=== PATIENT | female | born 1955 | race Caucasian/White ===

== ENCOUNTER 2017-12-27 05:54 | Day surgery (SDC) | payer OTHER ==
[2017-12-23 16:52] VITALS: BMI 34.4
[2017-12-27] MEDS ORDERED: EPINEPHrine 1:1,000 1 MG/1 ML - 30ML VIAL (INJECTION) ONE (07:06)
[2017-12-27] MEDS ORDERED: BUPIVACAINE HCL/PF 2.5 MG/ML - 30 ML VIAL IJ ONE (07:06)
[2017-12-27] MEDS ORDERED: ePHEDrine SULFATE 50 MG/1 ML AMPULE ONE (07:25)
[2017-12-27] MEDS ORDERED: SUCCINYLCHOLINE CHLORIDE 200 MG/10 ML VIAL ONE (07:26)
[2017-12-27] MEDS ORDERED: MIDAZOLAM HCL 2 MG/2 ML SINGLE DOSE VIAL ONE (07:26)
[2017-12-27] MEDS ORDERED: PROPOFOL 20 ML ONE ×6 (07:26)
[2017-12-27] MEDS ORDERED: BUPIVACAINE HCL/PF 0.25% (2.5MG/ML) 10 ML VIAL IJ ONE (08:24)
[2017-12-27] MEDS ORDERED: ONDANSETRON 4 MG/2 ML VIAL ONE (09:46)
[2017-12-27] MEDS ORDERED: ONDANSETRON 4 MG/2 ML VIAL IVPUSH ONE (09:50)
[2017-12-27] MEDS ORDERED: ONDANSETRON 4 MG/2 ML VIAL IVPUSH PRN (12:01)
[2017-12-27] MEDS ORDERED: oxyCODONE HCL 5 MG TABLET PO PRN ×2 (12:01)
[2017-12-27] MEDS ORDERED: LACTATED RINGERS SOLUTION 1,000 ML IV SCH (12:15)
[2017-12-27 12:49] VITALS: BP 115/64; PULSE 58; TEMP 98
--- NOTE | 2017-12-29 23:17 | OP ---
DATE OF OPERATION: 12/27/2017 SURGEON: Osorio Eduardo M.D. HUMAN RESOURCE INTERN: Michael Reese PREOPERATIVE DIAGNOSIS: 1. Left knee medial lateral meniscal tear. 2. Left knee cartilage injury. 3. Left knee synovitis. POSTOPERATIVE DIAGNOSIS: 1. Left knee medial lateral meniscal tear. 2. Left knee cartilage injury. 3. Left knee synovitis. PROCEDURE: 1. Left knee arthroscopy, partial meniscectomy medial and lateral meniscus. 2. Left knee arthroscopy with chondroplasty and abrasion plasty. 3. Left knee arthroscopy with synovectomy including removal of medial plica. CPT codes 66464, 48808, 43137. FINDINGS: 1. Medial meniscus body and posterior horn tear. 2. Lateral meniscus posterior horn tear. 3. Synovitis patellofemoral medial lateral notch area. 5. Antegrade grade 2 to 3 cartilage injury medial femoral condyle. 6. ACL and PCL intact. 7. Diffuse grade 1-2 cartilage lateral tibial plateau. 7. Central grade 2-4 cartilage injury patellofemoral trochlea. PROCEDURE: Informed consent was obtained. The patient came to the operating room, where the lower extremity was prepped and draped in a sterile fashion. A tourniquet was placed on the upper thigh, but not inflated. Using standard arthroscopic technique, a lateral incision and portal was made to allow for introduction of the camera into the suprapatellar bursa. This was then taken to the medial joint line, where under direct visualization, a medial incision and portal was made. Excessive synovium noted in the medial, lateral and patellofemoral and notch area was removed by an upbiter, shaver and Bovie cautery. This was found to bring in inflammatory tissue into the joint surface, a source of pain and dysfunction. Probing of the medial and lateral meniscus found tears, as described in the findings. These were removed with the upbiter and shaver and taken back to a stable rim. Grade 2 to 3 degenerative changes were treated with a chondroplasty, removing all flaking surfaces with low-setting Bovie along the periphery to prevent further flaking. Grade 4 changes, as noted, were treated with an abrasoplasty, creating a bleeding surface at the bone/cartilage interface. Aggressive debridement with shaver/rubio created bleeding surface. Mirco fracture also done when indicated in findings All areas of the knee were once again reexamined. The knee was then drained and a single suture was placed in all portals. A sterile dressing was placed and the patient was transferred to the recovery room without complication. OSORIO EDUARDO M.D. [id number]
--- NOTE | 2018-01-01 16:08 | PATH ---
Surgical Pathology Report Patient Name: JULITO WU [facility]. Rec. #: [id number] /Age/Gender: 1955 (Age: 62) / F Account: [id number] Location: [facility] Taken: 12/27/2017 Received: 12/27/2017 Reported: 01/01/2018 Physicians: Osorio Rangel M.D. Specimen(s) Received LEFT KNEE SHAVINGS Clinical History Left knee internal derangement Final Diagnosis KNEE, LEFT, ARTHROSCOPIC SHAVINGS: FIBROSYNOVIAL TISSUE AND CARTILAGE. Electronically Signed Jacklyn Almeida M.D. Gross Description Received in formalin, labeled "left knee shavings," is a 3.8 x 3.5 x 0.4 cm. aggregate of lozada-yellow soft tissue fragments. A construction representative portion is submitted in one cassette. /12/30/2017 saudi12/30/2017
== END 2017-12-27 11:30 | disposition home or self-care (01) ==
LOC: FASU 05:54
PROVIDERS: ATTEND Orthopaedic Surgery
PROC: 0SBD4ZZ Excision of Left Knee Joint, Percutaneous Endoscopic Approach (ICD-10-PCS; principal; 2017-12-27 07:41)
DX: S83.242A Other tear of medial meniscus, current injury, left knee, initial encounter (principal); S83.282A Other tear of lateral meniscus, current injury, left knee, initial encounter; S83.8X2A Sprain of other specified parts of left knee, initial encounter; M65.862 Other synovitis and tenosynovitis, left lower leg; X58.XXXA Exposure to other specified factors, initial encounter; Y93.9 Activity, unspecified; Y92.9 Unspecified place or not applicable
CPT/HCPCS: 88304-TC; 94760

== ENCOUNTER 2018-02-11 11:54 | Observation (INO) | payer OTHER ==
--- NOTE | 2018-02-11 12:15 | PDOC ---
History of Present Illness <Junaid Kidd - Last Filed: 02/11/18 15:24> - History of Present Illness Initial Comments: 02/11/18 12:15 CHIEF COMPLAINT: dizziness HISTORY OF PRESENT ILLNESS: 63 yo F with hx of HTN and afib presents to ED with dizziness since this morning. Patient reports that she woke up "feeling a little off but ok," and throughout the morning felt increasing dizzy to the point where the entire room was spinning and she became nauseous. She laid down on the ground but denies fall or LOC and states she remembers everything that happened. Her son and daughter found her on the floor and when they could not get her to stand back up due to her dizziness they called EMS. Family denies any change in behavior or slurred speech. Patient denies any blurry vision but states "I just feel a little weak." On EMS arrival patient vitals were stable. No recent travel or sick contacts. PAST MEDICAL HISTORY: HTN, afib FAMILY HISTORY: Denies SOCIAL HISTORY: Denies tobacco, alcohol, illicit drug use. SURGICAL HISTORY: Denies ALLERGIES: No known drug allergies REVIEW OF SYSTEMS General/Constitutional: Denies fever or chills. Denies weakness, weight change. HEENT: Denies change in vision. Denies ear pain or discharge. Denies sore throat. Cardiovascular: Denies chest pain or shortness of breath. Respiratory: Denies cough, wheezing, or hemoptysis. Gastrointestinal: Denies nausea, vomiting, diarrhea or constipation. Denies rectal bleeding. Genitourinary: Denies dysuria, frequency, or change in urination. Musculoskeletal: Denies joint or muscle swelling or pain. Denies neck or back pain. Skin and breasts: Denies rash or easy bruising. Neurologic: Vertigo. Denies headache, loss of consciousness, or loss of sensation. PHYSICAL EXAM General Appearance: Well-appearing, appropriately dressed. No apparent distress. HEENT: EOMI, PERRLA, normal ENT inspection, normal voice, TMs normal, pharynx normal. No conjunctival pallor. No photophobia, scleral icterus. Neck: Supple. Trachea midline. No tenderness, rigidity, carotid bruit, stridor , lymphadenopathy, or thyromegaly. Respiratory/Chest: Lungs CTAB. No shortness of breath, chest tenderness, respiratory distress, accessory muscle use. No crackles, rales, rhonchi, stridor , wheezing, dullness Cardiovascular: RRR. S1, S2. Gastrointestinal/Abdominal: Normal bowel sounds. Abdomen soft, non-distended. No tenderness or rebound tenderness. No organomegaly, pulsatile mass, guarding , hernia, hepatomegaly, splenomegaly. Musculoskeletal/Extremities: Normal inspection. FROM of all extremities, normal capillary refill. Pelvis Stable. No CVA tenderness. No tenderness to extremities, pedal edema, swelling, erythema or deformity. Integumentary: Appropriate color, dry, warm. No cyanosis, erythema, jaundice or rash Neurologic: operator specialist communications II-XII intact. Fully oriented, alert. Appropriate mood/affect. Motor strength 5/5. No appreciable EOM palsy, facial droop or sensory deficit. 02/11/18 12:52 <Miryam Alva - Last Filed: 02/11/18 15:44> - General Chief Complaint: Lightheaded Stated Complaint: DIZZINESS Time Seen by Provider: 02/11/18 11:59 Past History <Junaid Kidd - Last Filed: 02/11/18 15:24> - Past Medical History Anemia: No Asthma: No Cancer: No Cardiac Disorders: Yes (atrial fibrilation -stopped Eliquis last dose 12/22/17 as per biomedical scientist) CVA: No COPD: No CHF: No Dementia: No Diabetes: No GI Disorders: No Disorders: No HTN: Yes Hypercholesterolemia: No Liver Disease: No Seizures: No Thyroid Disease: No - Surgical History Abdominal Surgery: Yes Appendectomy: Yes Cardiac Surgery: No Cholecystectomy: Yes Lung Surgery: No Neurologic Surgery: No Orthopedic Surgery: No - Immunization History Td Vaccination: Yes Immunization Up to Date: Yes - Suicide/Smoking/Psychosocial Hx Smoking Status: No Smoking History: Never smoked Number of Cigarettes Smoked Daily: 0 Hx Alcohol Use: No Drug/Substance Use Hx: No Substance Use Type: None <Miryam Alva - Last Filed: 02/11/18 15:44> - Past Medical History Allergies/Adverse Reactions: Allergies Allergy/AdvReac Type Severity Reaction Status Date / Time No Known Allergies Allergy Verified 02/11/18 12:06 Home Medications: Ambulatory Orders Apixaban [Eliquis] 5 mg PO BID 12/23/17 Diltiazem Cd [Cardizem Cd -] 240 mg PO HS 12/23/17 Lisinopril/Hydrochlorothiazide [Lisinopril-Hctz 10-12.5 mg Tab] 1 each PO DAILY 12/23/17 Metoprolol Succinate [Toprol XL -] 50 mg PO DAILY 12/23/17 Sertraline HCl [Zoloft] 100 mg PO DAILY 12/23/17 Alprazolam [Alprazolam ER] 1 mg PO TID 02/11/18 *Physical Exam - Vital Signs Last Vital Signs Temp Pulse Resp BP Pulse Ox 97.8 F 59 L 16 119/54 97 02/11/18 12:10 02/11/18 13:51 02/11/18 13:51 02/11/18 13:51 02/11/18 13:51 <Junaid Kidd - Last Filed: 02/11/18 15:24> ED Treatment Course - LABORATORY CBC & Chemistry Diagram: 02/11/18 12:30 02/11/18 12:30 - ADDITIONAL ORDERS Additional order review: Laboratory Results 02/11/18 02/11/18 02/11/18 13:27 12:30 12:30 PT with INR INR Sodium 142 Potassium 4.1 Chloride 104 Carbon Dioxide 28 Anion Gap 10 BUN 26 H Creatinine 1.0 Creat Clearance w eGFR 56.00 Random Glucose 107 H Calcium 8.7 Total Bilirubin 0.3 AST 38 H ALT 48 Alkaline Phosphatase 80 Creatine Kinase 60 Troponin I < 0.02 Total Protein 7.8 Albumin 3.8 Triglycerides 149 Cholesterol 171 Total LDL Cholesterol 119 H HDL Cholesterol 32 L Urine Color Ltyellow Urine Appearance Slcloudy Urine pH 5.0 Ur Specific [place] 1.011 Urine Protein Negative Urine Glucose (UA) Negative Urine Ketones Negative Urine Blood Negative Urine Nitrite Negative Urine Bilirubin Negative Urine Urobilinogen Negative Ur Leukocyte Esterase Trace Urine WBC (Auto) 3 Urine RBC (Auto) <1 Ur Epithelial Cells Rare Hyaline Casts 1 02/11/18 12:30 PT with INR 15.30 H INR 1.35 H Sodium Potassium Chloride Carbon Dioxide Anion Gap BUN Creatinine Creat Clearance w eGFR Random Glucose Calcium Total Bilirubin AST ALT Alkaline Phosphatase Creatine Kinase Troponin I Total Protein Albumin Triglycerides Cholesterol Total LDL Cholesterol HDL Cholesterol Urine Color Urine Appearance Urine pH Ur Specific [place] Urine Protein Urine Glucose (UA) Urine Ketones Urine Blood Urine Nitrite Urine Bilirubin Urine Urobilinogen Ur Leukocyte Esterase Urine WBC (Auto) Urine RBC (Auto) Ur Epithelial Cells Hyaline Casts 02/11/18 12:30 RBC 4.07 MCV 80.3 MCHC 33.7 RDW 14.8 MPV 6.2 L Neutrophils % 63.8 Lymphocytes % 26.3 Monocytes % 7.6 Eosinophils % 1.4 Basophils % 0.9 - Medications Given in the ED: ED Medications Discontinued Medications Generic Name Dose Route Start Last Admin Trade Name Freq PRN Reason Stop Dose Admin Meclizine HCl 25 mg 02/11/18 12:24 02/11/18 13:46 Antivert - PO 02/11/18 12:25 25 mg ONCE ONE Administration Ondansetron HCl 4 mg 02/11/18 12:24 02/11/18 13:46 Zofran Odt - SL 02/11/18 12:25 4 mg ONCE ONE Administration <Junaid Kidd - Last Filed: 02/11/18 15:24> - LABORATORY CBC & Chemistry Diagram: 02/11/18 12:30 02/11/18 12:30 <Miryam Alva - Last Filed: 02/11/18 15:44> Medical Decision Making - Medical Decision Making 02/11/18 12:55 63 yo F with hx of HTN and afib presents to ED with dizziness since this morning. -labs, head CT labs unremarkable head CT negative for stroke. given gait disturbance and history of afib/HTN, will admit to stroke obs. <Miryam Alva - Last Filed: 02/11/18 15:44> *DC/Admit/Observation/Transfer <Junaid Kidd - Last Filed: 02/11/18 15:24> - Discharge Dispostion Admit: Yes <Miryam Alva - Last Filed: 02/11/18 15:44> Diagnosis at time of Disposition: Gait disturbance - Referrals Referrals: Zachary Hawkins MD [Primary Care Provider] - NIH Stroke Scale - Last Known Well Date/Time & Onset Date Last Known Well: 02/11/18 Time Last Known Well: 11:00 - Initial Evaluation Level of consciousness: Alert Ask patient the month and their age: Answers both correctly Ask patient to open & close eyes; make fist and let go: Obeys both correctly Best gaze (horizontal eye movement): Normal Visual field testing: No visual field loss Facial paresis (Show teeth/raise eyebrows/close eyes tight): Normal symmetrical movement Motor Function: Left Arm: Normal Motor Function: Right Arm: Normal (extends arm 90 (or 45) degrees for 10 seconds without drift Motor Function: Left Leg: Normal (extends leg 30 degrees for 5 seconds without drift) Motor Function: Right Leg: Normal (extends leg 30 degrees for 5 seconds without drift) Limb Ataxia: No ataxia Sensory(Use pinprick test arms,legs,trunk,face/side to side): Normal Best language (Describe picture, name items, read sentences): No Aphasia Dysarthria (read several words): Normal articulation Extinction and Inattention: No abnormality - Total Score NIH Stroke Scale Score: 0 <Junaid Kidd - Last Filed: 02/11/18 15:24> tPA Exclusion Checklist 0-3hr - Relative Exclusion Criteria 0-3h Rapid improvement: Yes Stroke severity too mild: Yes <Junaid Kidd - Last Filed: 02/11/18 15:24>
[2018-02-11 12:17] VITALS: BMI 34.4
[2018-02-11] MEDS ORDERED: ONDANSETRON *ODT* 4 MG TABLET SL ONE (12:24)
[2018-02-11] MEDS ORDERED: MECLIZINE HCL 25 MG TABLET (FP) PO ONE (12:24)
[2018-02-11 12:42] LABS: BASO % 0.9 % (0-2.0); EOS % 1.4 % (0-4.5); HEMATOCRIT 32.7 % (32.4-45.2); LYMPH % 26.3 % (8-40); MCH 27.1 pg (25.7-33.7); MCHC 33.7 g/dl (32.0-36.0); MEAN CELL VOLUME 80.3 fl (80-96); MEAN PLT VOLUME 6.2 fl (7.5-11.1); MONO % 7.6 % (3.8-10.2); NEUT % 63.8 % (42.8-82.8); PLATELET COUNT 180 K/MM3 (134-434); RBC 4.07 M/mm3 (3.60-5.2); RDW 14.8 % (11.6-15.6); WHITE BLOOD COUNT 5.5 K/mm3 (4.0-10.0)
[2018-02-11 12:44] LABS: URINE APPEARANCE SLCLOUDY; URINE BILIRUBIN NEGATIVE (<2.0 mg/dL); URINE BLOOD NEGATIVE (NEGATIVE); URINE COLOR LTYELLOW; URINE GLUCOSE (UA) NEGATIVE (NEGATIVE); URINE KETONE NEGATIVE (NEGATIVE); URINE LEUK ESTERASE TRACE (NEGATIVE); URINE NITRITE NEGATIVE (NEGATIVE); URINE PROTEIN NEGATIVE (NEGATIVE); URINE UROBILINOGEN NEGATIVE mg/dL (0.2-1.0)
[2018-02-11 12:54] LABS: EPI CELLS RARE /HPF (FEW); URINE HYALINE CAST 1 /lpf
[2018-02-11] MEDS ORDERED: SODIUM CHLORIDE 1,000 ML IV SCH (13:00)
[2018-02-11 13:03] LABS: INR 1.35 (0.82-1.09); PROTHROMBIN TIME (PATIENT) 15.3 SEC (9.7-13.0)
[2018-02-11 13:10] LABS: ALBUMIN 3.8 g/dl (3.4-5.0); ANION GAP 10 (8-16); BILIRUBIN,TOTAL 0.3 mg/dL (0.2-1.0); BLOOD UREA NITROGEN 26 mg/dL (7-18); CALCIUM 8.7 mg/dL (8.5-10.1); CHLORIDE 104 mmol/L (98-107); CO2 28 mmol/L (21-32); GLUCOSE,RANDOM 107 mg/dL (74-106); POTASSIUM 4.1 mmol/L (3.5-5.1); SGOT/AST 38 U/L (15-37); SGPT/ALT 48 U/L (12-78); SODIUM 142 mmol/L (136-145); TOT PROT 7.8 g/dl (6.4-8.2)
[2018-02-11 13:12] LABS: ALK PHOS 80 U/L (45-117)
[2018-02-11] MEDS ORDERED: MECLIZINE HCL 25 MG TABLET (FP) ONE (13:31)
[2018-02-11] MEDS ORDERED: ONDANSETRON *ODT* 4 MG TABLET ONE (13:32)
--- NOTE | 2018-02-11 13:32 | PDOC ---
*Physical Exam - Vital Signs Last Vital Signs Temp Pulse Resp BP Pulse Ox 97.8 F 59 L 18 133/58 100 02/11/18 12:10 02/11/18 12:10 02/11/18 12:10 02/11/18 12:10 02/11/18 13:27 - Physical Exam Comments: 02/11/18 13:28 VSS neuro exam notable for some shuffling gait, ambulates with cane since her knee surgery, otherwise unremarkable ED Treatment Course - LABORATORY CBC & Chemistry Diagram: 02/12/18 06:38 02/12/18 06:38 - ADDITIONAL ORDERS Additional order review: Laboratory Results 02/11/18 02/11/18 02/11/18 12:30 12:30 12:30 PT with INR 15.30 H INR 1.35 H Sodium 142 Potassium 4.1 Chloride 104 Carbon Dioxide 28 Anion Gap 10 BUN 26 H Creatinine 1.0 Creat Clearance w eGFR 56.00 Random Glucose 107 H Calcium 8.7 Total Bilirubin 0.3 AST 38 H ALT 48 Alkaline Phosphatase 80 Creatine Kinase 60 Total Protein 7.8 Albumin 3.8 Urine Color Ltyellow Urine Appearance Slcloudy Urine pH 5.0 Ur Specific [place] 1.011 Urine Protein Negative Urine Glucose (UA) Negative Urine Ketones Negative Urine Blood Negative Urine Nitrite Negative Urine Bilirubin Negative Urine Urobilinogen Negative Ur Leukocyte Esterase Trace Urine WBC (Auto) 3 Urine RBC (Auto) <1 Ur Epithelial Cells Rare Hyaline Casts 1 02/11/18 12:30 RBC 4.07 MCV 80.3 MCHC 33.7 RDW 14.8 MPV 6.2 L Neutrophils % 63.8 Lymphocytes % 26.3 Monocytes % 7.6 Eosinophils % 1.4 Basophils % 0.9 Medical Decision Making - Critical Care Time Total Critical Care Time (minutes): 30 Critical Care Statement: The care of this patient involved high complexity decision making to prevent further life threatening deterioration of the patient 's condition and/or to evaluate & treat vital organ system(s) failure or risk of failure. - Medical Decision Making 02/11/18 13:29 Patient seen and evaluated with the nurse practitioner. I agree with the overall evaluation, assessment, and management with the following summary of visit: 63-year-old female with history of hypertension, atrial fibrillation presents with acute onset of dizziness and difficulty ambulating around 11 AM this morning after eating breakfast, felt nauseous and diaphoretic during the episode , was found by her son and EMS activated. Since then, symptoms have almost completely resolved, though she feels slightly lightheaded. no headache, no speech change, no focal weakness. She did have some diplopia during the episode , that has also resolved. Vital signs normal Exam as noted 63-year-old female with acute onset of dizziness/gait disturbance/diplopia, resolved. Given history of hypertension and atrial fibrillation, presentation is most concerning for embolic event, now much improved. Stroke protocol initiated CT head, neurology consult Likely stroke admission *DC/Admit/Observation/Transfer Diagnosis at time of Disposition: Gait disturbance - Discharge Dispostion Disposition: HOME Condition at time of disposition: Stable - Prescriptions - Referrals - Patient Instructions - Post Discharge Activity
--- NOTE | 2018-02-11 13:38 | EKG ---
Test Reason : Blood Pressure : / mmHG Vent. Rate : 055 BPM Atrial Rate : 055 BPM P-R Int : 144 ms QRS Dur : 078 ms QT Int : 428 ms P-R-T Axes : 004 024 019 degrees QTc Int : 409 ms POOR DATA QUALITY, INTERPRETATION MAY BE ADVERSELY AFFECTED SINUS BRADYCARDIA OTHERWISE NORMAL ECG WHEN COMPARED WITH ECG OF 09-MAY-2004 11:40, NO SIGNIFICANT CHANGE WAS FOUND Confirmed by MD BRADY, ROBIN ([id number]) on 02/11/2018 1:38:17 PM Referred By: Confirmed By:ROBIN ABREU MD
[2018-02-11 14:27] LABS: CHOLESTEROL 171 mg/dL (50-200); HDL CHOLESTEROL 32 mg/dL (40-60); LDL CHOLESTEROL (ONLY SJRH) 119 mg/dL (5-100); TRIGLYCERIDES 149 mg/dL (35-160)
--- NOTE | 2018-02-11 16:51 | HP ---
CHIEF COMPLAINT: dizziness, unsteady gait PCP: HISTORY OF PRESENT ILLNESS: Patient is a 63 year old female with a significant past medical history of recent left knee surgery, vertigo, hypertension and atrial fibrillation (on Eliquis). She presents to the Ed today after feeling dizzy with an unsteady gait at home. Patient had a recent left knee surgery and is currently undergoing physical therapy. However, today after she woke up, she began to feel dizzy and reports that the room was spinning. She became nauseous and laid down on the ground but denies falling. Did not have left knee pain. Her family called EMS. No reports of slurred speech or loss of consciousness at home. Patient denies any blurry vision, headaches. Patient reports feeling much weaker today. She is noted to have bradycardia on the electronic device monitor. No recent travel or sick contacts. ER course was notable for: (1) pulse 58, sinus bradycarida (2) negative trop (3) negative head CT Recent Travel: PAST MEDICAL HISTORY: PAST SURGICAL HISTORY: left knee surgery Social History: Smoking: n/a Alcohol:n/a Drugs: n/a Family History: Allergies No Known Allergies Allergy (Verified 02/11/18 12:06) HOME MEDICATIONS: Home Medications Medication Instructions Recorded Apixaban [Eliquis] 5 mg PO BID 12/23/17 Diltiazem Cd [Cardizem Cd -] 240 mg PO HS 12/23/17 Lisinopril/Hydrochlorothiazide 1 each PO DAILY 12/23/17 [Lisinopril-Hctz 10-12.5 mg Tab] Metoprolol Succinate [Toprol XL -] 50 mg PO DAILY 12/23/17 Sertraline HCl [Zoloft] 100 mg PO DAILY 12/23/17 Alprazolam [Alprazolam ER] 1 mg PO TID 02/11/18 PHYSICAL EXAMINATION Vital Signs - 24 hr 02/11/18 02/11/18 02/11/18 12:10 13:27 13:51 Temperature 97.8 F Pulse Rate 59 L Pulse Rate [ 59 L Apical] Respiratory 18 16 Rate Blood Pressure 133/58 Blood Pressure 119/54 [Right Arm] O2 Sat by Pulse 97 100 97 Oximetry (%) GENERAL: Awake, alert, and fully oriented, in no acute distress. HEAD: Normal with no signs of trauma. EYES: Pupils equal, round and reactive to light, extraocular movements intact, sclera anicteric, conjunctiva clear. No lid lag. EARS, NOSE, THROAT: Ears normal, nares patent, oropharynx clear without exudates. Moist mucous membranes. NECK: Normal range of motion, supple without lymphadenopathy, JVD, or masses. LUNGS: Breath sounds equal, clear to auscultation bilaterally. No wheezes, and no crackles. No accessory muscle use. HEART: SB on electronic device monitor ABDOMEN: Soft, nontender, not distended, normoactive bowel sounds, no guarding, no rebound, no masses. No hepatomegaly or splenomegaly. MUSCULOSKELETAL: Normal range of motion at all joints. No bony deformities or tenderness. No CVA tenderness. UPPER EXTREMITIES: 2+ pulses, warm, well-perfused. No cyanosis. No clubbing. No peripheral edema. LOWER EXTREMITIES: left knee surgical well healed scar, mild edema on left leg, denies pain NEUROLOGICAL: Normal speech. Laboratory Results - last 24 hr 02/11/18 02/11/18 02/11/18 12:30 12:30 12:30 WBC 5.5 RBC 4.07 Hgb 11.0 Hct 32.7 MCV 80.3 MCH 27.1 MCHC 33.7 RDW 14.8 Plt Count 180 MPV 6.2 L Neutrophils % 63.8 Lymphocytes % 26.3 Monocytes % 7.6 Eosinophils % 1.4 Basophils % 0.9 PT with INR 15.30 H INR 1.35 H Sodium Potassium Chloride Carbon Dioxide Anion Gap BUN Creatinine Creat Clearance w eGFR Random Glucose Calcium Total Bilirubin AST ALT Alkaline Phosphatase Creatine Kinase Troponin I Total Protein Albumin Triglycerides Cholesterol Total LDL Cholesterol HDL Cholesterol Urine Color Ltyellow Urine Appearance Slcloudy Urine pH 5.0 Ur Specific [place] 1.011 Urine Protein Negative Urine Glucose (UA) Negative Urine Ketones Negative Urine Blood Negative Urine Nitrite Negative Urine Bilirubin Negative Urine Urobilinogen Negative Ur Leukocyte Esterase Trace Urine WBC (Auto) 3 Urine RBC (Auto) <1 Ur Epithelial Cells Rare Hyaline Casts 1 02/11/18 02/11/18 12:30 13:27 WBC RBC Hgb Hct MCV MCH MCHC RDW Plt Count MPV Neutrophils % Lymphocytes % Monocytes % Eosinophils % Basophils % PT with INR INR Sodium 142 Potassium 4.1 Chloride 104 Carbon Dioxide 28 Anion Gap 10 BUN 26 H Creatinine 1.0 Creat Clearance w eGFR 56.00 Random Glucose 107 H Calcium 8.7 Total Bilirubin 0.3 AST 38 H ALT 48 Alkaline Phosphatase 80 Creatine Kinase 60 Troponin I < 0.02 Total Protein 7.8 Albumin 3.8 Triglycerides 149 Cholesterol 171 Total LDL Cholesterol 119 H HDL Cholesterol 32 L Urine Color Urine Appearance Urine pH Ur Specific [place] Urine Protein Urine Glucose (UA) Urine Ketones Urine Blood Urine Nitrite Urine Bilirubin Urine Urobilinogen Ur Leukocyte Esterase Urine WBC (Auto) Urine RBC (Auto) Ur Epithelial Cells Hyaline Casts ASSESSMENT/PLAN: Patient is a 63 year old female with a significant past medical history of recent left knee surgery, vertigo, hypertension and atrial fibrillation (on Eliquis). She presents to the Ed today after feeling dizzy with an unsteady gait at home. Patient had a recent left knee surgery and is currently undergoing physical therapy. However, today after she woke up, she began to feel dizzy and reports that the room was spinning. She became nauseous and laid down on the ground but denies falling. Did not have left knee pain. Her family called EMS. No reports of slurred speech or loss of consciousness at home. Patient denies any blurry vision, headaches. Patient reports feeling much weaker today. She is noted to have bradycardia on the electronic device monitor. No recent travel or sick contacts. Neuro: Pre-syncope, unsteady gait Dizziness Head CT negative Carotid dopplers ordered Echo ordered Had recent surgery, not on narcotics at home, only Tylenol Left knee surgical scar well healed Blood and urine cultures ordered Monitor on tele, SB Orthostatics q8 Refusing ASA, has hx of nose bleeds on Eliquis with ASA Lipitor 10@ hs, pending fasting lipid panel Brain MRI ordered Neuro consulted Swallow eval and PT as per stroke protocol CV: Hypertension, chronic Appears well controlled On Lisinopril 12.5 daily, Metoprolol daily Orthostatics q8 Atrial Fibrillation, chronic On Eliquis, Cardizem Cardiology consult F.E.N. Fluids: hydrate overnight Electrolytes: monitor Nutrition: swallow eval, soft diet Prophy: DVT: on Eliquis GI: Zantac Disposition: full code Visit type - Emergency Visit Emergency Visit: Yes ED Registration Date: 02/11/18 Care time: The patient presented to the Emergency Department on the above date and was hospitalized for further evaluation of their emergent condition. - New Patient This patient is new to me today: Yes Date on this admission: 02/11/18 - Critical Care Critical Care patient: No Hospitalist Screening - Colonoscopy Questionnaire Colonoscopy Questionnaire: Colonoscopy Questionnaire - Patient: 50 - 75 years old and never had a screening colonoscopy: Yes History of colon or rectal polyps, or CA: Unknown History of IBD, Crohn's disease or UC: Unknown History of abdominal radiation therapy as a child: Unknown - Relative: 1 with colon or rectal CA, or polyps at age 60 or younger: Unknown Colon or rectal CA diagnosed at age 45 or younger: Unknown Multiple relatives with colon or rectal CA: Unknown - Outcome: Screening Result: Positive Screen
[2018-02-11] MEDS ORDERED: ACETAMINOPHEN 325 MG TABLET (FP) PO PRN (17:19)
[2018-02-11] MEDS ORDERED: ONDANSETRON 4 MG/2 ML VIAL IVPUSH PRN (18:11)
[2018-02-11] MEDS: MECLIZINE HCL 25 MG TABLET (FP) PO SCH (19:47)
[2018-02-11] MEDS: APIXABAN 5 MG TABLET PO SCH (21:29)
[2018-02-11] MEDS ORDERED: ATORVASTATIN CA 10 MG TABLET (FP) PO SCH (22:00)
[2018-02-12] MEDS: MECLIZINE HCL 25 MG TABLET (FP) PO SCH ×3 (00:54→11:04)
[2018-02-12] MEDS ORDERED: PT OWN MED DRAWER 7, Y5N ONE (05:37)
[2018-02-12 07:09] LABS: BASO % 0.4 % (0-2.0); EOS % 1.9 % (0-4.5); HEMATOCRIT 30.4 % (32.4-45.2); HEMOGLOBIN 10.2 GM/dL (10.7-15.3); LYMPH % 36.2 % (8-40); MCH 26.9 pg (25.7-33.7); MCHC 33.4 g/dl (32.0-36.0); MEAN CELL VOLUME 80.3 fl (80-96); MEAN PLT VOLUME 6.5 fl (7.5-11.1); MONO % 7.8 % (3.8-10.2); NEUT % 53.7 % (42.8-82.8); PLATELET COUNT 162 K/MM3 (134-434); RBC 3.79 M/mm3 (3.60-5.2); RDW 14.8 % (11.6-15.6)
[2018-02-12 07:29] LABS: CHLORIDE 109 mmol/L (98-107); POTASSIUM 4.1 mmol/L (3.5-5.1); SODIUM 143 mmol/L (136-145)
[2018-02-12 07:42] LABS: ALBUMIN 3.2 g/dl (3.4-5.0); ALK PHOS 67 U/L (45-117); ANION GAP 3 (8-16); BILIRUBIN,TOTAL 0.3 mg/dL (0.2-1.0); BLOOD UREA NITROGEN 18 mg/dL (7-18); CALCIUM 8.2 mg/dL (8.5-10.1); CHOLESTEROL 143 mg/dL (50-200); CO2 31 mmol/L (21-32); CREATININE 0.9 mg/dL (0.55-1.02); GLUCOSE,RANDOM 117 mg/dL (74-106); HDL CHOLESTEROL 28 mg/dL (40-60); LDL CHOLESTEROL (ONLY SJRH) 105 mg/dL (5-100); SGOT/AST 22 U/L (15-37); SGPT/ALT 36 U/L (12-78); TOT PROT 6.7 g/dl (6.4-8.2); TRIGLYCERIDES 115 mg/dL (35-160)
[2018-02-12] MEDS: APIXABAN 5 MG TABLET PO SCH (09:24)
--- NOTE | 2018-02-12 09:57 | CONSULT ---
Consult - text type - Consultation Consultation Note: Neurology CHIEF COMPLAINT: dizziness, unsteady gait HISTORY OF PRESENT ILLNESS: 63 year old female with a significant past medical history of recent left knee surgery, vertigo, hypertension and atrial fibrillation (on Eliquis). She presents to the Ed after feeling dizzy with an unsteady gait at home. Patient had a recent left knee surgery and is currently undergoing physical therapy. However, after she woke up, she began to feel dizzy and reports that the room was spinning. She became nauseous and laid down on the ground but denies falling. Did not have left knee pain. Her family called EMS. No reports of slurred speech or loss of consciousness at home. Patient denies any blurry vision, headaches. In ER, CT head completed and negative. Was given Meclezine and this AM is feeling better. MRI brain ordered and spoke to nurse, attempted overnight but patient with anxiety and claustrophobia. Will re-attempt with medication. PAST MEDICAL HISTORY: As above PAST SURGICAL HISTORY: left knee surgery Social History: Smoking: n/a Alcohol:n/a Drugs: n/a Family History: Allergies No Known Allergies Allergy (Verified 02/11/18 12:06) Active Medications Acetaminophen (Tylenol -) 650 mg PO Q6H PRN PRN Reason: PAIN LEVEL 7 - 10 Apixaban (Eliquis -) 5 mg PO BID [facility] Last Admin: 02/12/18 09:24 Dose: 5 mg Atorvastatin Calcium (Lipitor -) 10 mg PO HS [facility] Last Admin: 02/11/18 21:29 Dose: 10 mg Diltiazem HCl (Cardizem Cd -) 240 mg PO HS [facility] Last Admin: 02/11/18 21:29 Dose: 240 mg Hydrochlorothiazide (Hctz -) 12.5 mg PO DAILY [facility] Last Admin: 02/12/18 09:24 Dose: 12.5 mg Sodium Chloride (Normal Saline -) 1,000 mls @ 42 mls/hr IV ASDIR [facility] Last Admin: 02/11/18 13:48 Dose: 42 mls/hr Lisinopril (Prinivil) 10 mg PO DAILY [facility] Last Admin: 02/12/18 09:24 Dose: 10 mg Meclizine HCl (Antivert -) 12.5 mg PO Q6HPO [facility] Last Admin: 02/12/18 05:38 Dose: 12.5 mg Metoprolol Succinate (Toprol Xl -) 50 mg PO DAILY [facility] Last Admin: 02/12/18 09:24 Dose: 50 mg Ondansetron HCl (Zofran Injection) 4 mg IVPUSH Q8H PRN PRN Reason: NAUSEA Sertraline HCl (Zoloft -) 100 mg PO DAILY [facility] PHYSICAL EXAMINATION Vital Signs Period Temp Pulse Resp BP Sys/Can Pulse Ox Last 24 Hr 97.8 F-98.2 F 58-68 16-20 110-136/49-67 94-100 GENERAL: Awake, alert, and fully oriented, in no acute distress. HEAD: Normal with no signs of trauma. EYES: Pupils equal, round and reactive to light, extraocular movements intact, sclera anicteric, conjunctiva clear. No lid lag. EARS, NOSE, THROAT: Ears normal, nares patent, oropharynx clear without exudates. Moist mucous membranes. NECK: Normal range of motion, supple without lymphadenopathy, JVD, or masses. LUNGS: Breath sounds equal, clear to auscultation bilaterally. No wheezes, and no crackles. No accessory muscle use. HEART: SB on monitor and storage bin tender ABDOMEN: Soft, nontender, not distended, normoactive bowel sounds, no guarding, no rebound, no masses. No hepatomegaly or splenomegaly. MUSCULOSKELETAL: Normal range of motion at all joints. No bony deformities or tenderness. No CVA tenderness. UPPER EXTREMITIES: 2+ pulses, warm, well-perfused. No cyanosis. No clubbing. No peripheral edema. LOWER EXTREMITIES: left knee surgical well healed scar, mild edema on left leg, denies pain NEUROLOGICAL: Oriented, CN intact, sensory normal, strength symetric and 5/5 b /l in UE and LE, finger to nose intact CBCD WBC 5.0 K/mm3 (4.0-10.0) 02/12/18 06:38 RBC 3.79 M/mm3 (3.60-5.2) 02/12/18 06:38 Hgb 10.2 GM/dL (10.7-15.3) L 02/12/18 06:38 Hct 30.4 % (32.4-45.2) L 02/12/18 06:38 MCV 80.3 fl (80-96) 02/12/18 06:38 MCHC 33.4 g/dl (32.0-36.0) 02/12/18 06:38 RDW 14.8 % (11.6-15.6) 02/12/18 06:38 Plt Count 162 K/MM3 (134-434) 02/12/18 06:38 MPV 6.5 fl (7.5-11.1) L 02/12/18 06:38 CMP Sodium 143 mmol/L (136-145) 02/12/18 06:38 Potassium 4.1 mmol/L (3.5-5.1) 02/12/18 06:38 Chloride 109 mmol/L (98-107) H 02/12/18 06:38 Carbon Dioxide 31 mmol/L (21-32) 02/12/18 06:38 Anion Gap 3 (8-16) L 02/12/18 06:38 BUN 18 mg/dL (7-18) 02/12/18 06:38 Creatinine 0.9 mg/dL (0.55-1.02) 02/12/18 06:38 Creat Clearance w eGFR > 60 (>60) 02/12/18 06:38 Random Glucose 117 mg/dL (74-106) H 02/12/18 06:38 Calcium 8.2 mg/dL (8.5-10.1) L 02/12/18 06:38 Total Bilirubin 0.3 mg/dL (0.2-1.0) 02/12/18 06:38 AST 22 U/L (15-37) 02/12/18 06:38 ALT 36 U/L (12-78) 02/12/18 06:38 Alkaline Phosphatase 67 U/L (45-117) 02/12/18 06:38 Total Protein 6.7 g/dl (6.4-8.2) 02/12/18 06:38 Albumin 3.2 g/dl (3.4-5.0) L 02/12/18 06:38 CARDIAC ENZYMES Creatine Kinase 60 IU/L (26-192) 02/11/18 12:30 Troponin I < 0.02 ng/ml (0.00-0.05) 02/12/18 00:01 CT head negative ASSESSMENT/PLAN: 63 year old female with a significant past medical history of recent left knee surgery, vertigo, hypertension and atrial fibrillation (on Eliquis). She presents to the Ed after feeling dizzy with an unsteady gait at home. Patient had a recent left knee surgery and is currently undergoing physical therapy. However, after she woke up, she began to feel dizzy and reports that the room was spinning. She became nauseous and laid down on the ground but denies falling. Did not have left knee pain. Her family called EMS. No reports of slurred speech or loss of consciousness at home. Patient denies any blurry vision, headaches. In ER, CT head completed and negative. Was given Meclezine and this AM is feeling better. MRI brain ordered and spoke to nurse, attempted overnight but patient with anxiety and claustrophobia. Will re-attempt with medication. Can continue meclezine as needed. Remains on Eliquis for Afib. Maintain blood pressure control. Cardiology consult. Continue Statin, LDL goal < 100, goal would be < 70 if CVA.
[2018-02-12] MEDS ORDERED: SERTRALINE HCL 50 MG TABLET (FP) PO SCH (10:00)
[2018-02-12] MEDS ORDERED: PATIENT'S OWN MEDICATION (NON-FORMULARY) (Lisinopril/Hydrochlorothiazide [Lisinopril-Hctz PO SCH (10:00)
[2018-02-12] MEDS ORDERED: HYDROCHLOROTHIAZIDE 12.5 MG CAPSULE (FP) PO SCH (10:00)
[2018-02-12] MEDS ORDERED: LISINOPRIL 10 MG TABLET (FP) PO SCH ×3 (10:00)
--- NOTE | 2018-02-12 10:03 | CONSULT ---
Admitting History and Physical - Primary Care Physician PCP: Kyle Camarillo - Admission History of Present Illness: Per EMR: HISTORY OF PRESENT ILLNESS: 63 year old female with a significant past medical history of recent left knee surgery, vertigo, hypertension and atrial fibrillation (on Eliquis). She presents to the Ed after feeling dizzy with an unsteady gait at home. Patient had a recent left knee surgery and is currently undergoing physical therapy. However, after she woke up, she began to feel dizzy and reports that the room was spinning. She became nauseous and laid down on the ground but denies falling. Did not have left knee pain. Her family called EMS. No reports of slurred speech or loss of consciousness at home. Patient denies any blurry vision, headaches. In ER, CT head completed and negative. Was given Meclezine and this AM is feeling better. MRI brain ordered and spoke to nurse, attempted overnight but patient with anxiety and claustrophobia. Will re-attempt with medication. Pt reports sudden onset vertigo with speech deficits and facial weakness 6 yrs ago. Pt was hospitalized at [facility] x 7 days, but she did "not have a stroke" at that time. History Source: Patient, Medical Record Limitations to Obtaining History: No Limitations - Smoking History Smoking history: Never smoked Aproximately how many cigarettes per day: 0 - Alcohol/Substance Use Hx Alcohol Use: No History - Admission Reason For Visit: STROKE LIKE EPISODE - Diagnostics X-ray: Report Reviewed CT Scan: Report Reviewed MRI: Pending - General Mental Status: Alert and Oriented, Awake and Alert, Able to Follow Commands Attention: Intact Ability to Follow Directions: Excellent Head/Neck Control: WFL - Hearing Hearing: Functional Speech Evaluation - Communication Primary Language: YI Communication: Yes: Within Normal Limits Oral Expression Ability: Yes: No Impairment - Speech Production Able to Make Needs Known: Yes: WNL Intelligibility: Yes: WNL - Speech Characteristics Voice Loudness: Normal Voice Pitch: Yes: Normal Voice Phonatory-based Quality: Yes: Normal Speech Pattern: Normal Speech Clarity: < 100% Nasal Resonance: Normal Articulation: Yes: Precise Rate of Speech: Intact - Language/Auditory Comprehension Follows: Yes: 2 Stage Simple Commands - Language/Verbal Expression Able to Respond to Simple Queries: Yes: WNL Able to Communicate Wants and Needs: Yes: WNL Functional Communication Status: Yes: WNL - Memory/Perception MCC Memory: Yes: WNL Short Term Memory: Yes: WNL - Swallow Evaluation/Bedside Assessment Current Nutritional Intake: Soft, Thin Liquids Oral Secretions: Yes: WFL Dentition: Yes: Adequate Facial Symmetry at Rest: Facial Droop Right (slight at rest. Baseline?) Facial Symmetry on Retraction: Symmetrical Facial Movement: Controlled Sensation: Normal Against Resistance Opening: Normal Against Resistance Closing: Normal Pucker Lips: Normal Smile: Normal Lingual Movement: Normal, Symmetric Lingual Speed of Movement: Normal Lingual Movement Strgth Against Opposition: Normal Lingual Movement Characteristics: Normal Soft Palate Description: Normal Color, Normal Symmetry Hard Palate Description: Normal Color, Normal Symmetry Velopharyngeal Movement: Normal Laryngeal Elevation: WFL Laryngeal Movement: Able to Palpate Rate of Intake: WFL Bolus Size: WFL Labial Seal: WFL Chewing: WFL Oral Prep Time: WFL A-P Transit: WFL Pocketing: None Timing of Swallow: WFL Coughing/Throat Clear: No Change in Voice: No Recommendations - Speech Evaluation, Impression/Plan Impression: Speech,swallowing,cognition intact.Vertigo symptoms resolved. Pending MRI. - Dysphagia Impressions/Plan Swallowing Skills: WF Dysphagia Impressions: No Impairment *Silent aspiration: cannot be R/O at bedside - Recommendations Diet Consistency: Regular Medication Administration: Whole with water Liquids: Thin Liquids
[2018-02-12] MEDS ORDERED: diazePAM 2 MG TABLET PO ONE (10:21)
--- NOTE | 2018-02-12 11:17 | CON.CARD ---
Consult Consult Specialty:: Cardiology Referred by:: Hospitalist Medicine Reason for Consultation:: Afib, dizziness - History of Present Illness Chief Complaint: Afib, dizziness History of Present Illness: Patient is a 63 year old female with a significant past medical history of recent left knee surgery, vertigo, hypertension and atrial fibrillation (on Eliquis) admitted for dizziness, vertigo with an unsteady gait at home and perception of room spinning associated with nausea, denies true syncope, palpitations, chest pain, dyspnea, orthopnea, PND or LE edema, imaging including brain MRI and carotid US negative. Vertigo amenable to meclizine. - History Source History Provided By: Patient Limitations to Obtaining History: No Limitations - Past Medical History Cardio/Vascular: Yes: AFIB, HTN - Alcohol/Substance Use Hx Alcohol Use: No - Smoking History Smoking history: Never smoked Aproximately how many cigarettes per day: 0 Home Medications - Allergies Allergies/Adverse Reactions: Allergies Allergy/AdvReac Type Severity Reaction Status Date / Time No Known Allergies Allergy Verified 02/11/18 12:06 - Home Medications Home Medications: Ambulatory Orders Apixaban [Eliquis] 5 mg PO BID 12/23/17 Diltiazem Cd [Cardizem Cd -] 240 mg PO HS 12/23/17 Lisinopril/Hydrochlorothiazide [Lisinopril-Hctz 10-12.5 mg Tab] 1 each PO DAILY 12/23/17 Metoprolol Succinate [Toprol XL -] 50 mg PO DAILY 12/23/17 Sertraline HCl [Zoloft] 100 mg PO DAILY 12/23/17 Alprazolam [Alprazolam ER] 1 mg PO TID 02/11/18 Klonopin 1 mg PO BID PRN 02/11/18 Atorvastatin Ca [Lipitor] 10 mg PO HS #30 tablet 02/12/18 Meclizine HCl [Antivert -] 12.5 mg PO Q6HPO PRN #20 tablet 02/12/18 Review of Systems - Review of Systems Neurological: reports: Dizziness Vital Signs: Vital Signs Temperature 98.0 F 02/12/18 04:00 Pulse Rate 62 02/12/18 04:00 Respiratory Rate 20 02/12/18 04:00 Blood Pressure 121/56 02/12/18 04:00 O2 Sat by Pulse Oximetry (%) 95 02/11/18 21:00 Constitutional: Yes: No Distress, Calm Neck: Yes: Supple Respiratory: Yes: Regular, CTA Bilaterally Gastrointestinal: Yes: Normal Bowel Sounds, Soft Cardiovascular: Yes: Regular Rate and Rhythm JVD: No Carotid Bruit: No Heart Sounds: Yes: S1, S2 Murmur: Yes: Systolic Murmur, Grade 1 Edema: No - Other Data Labs, Other Data: CBC, BMP 02/12/18 06:38 02/12/18 06:38 INR, PTT INR 1.35 (0.82-1.09) H 02/11/18 12:30 Troponin, BNP 02/11/18 02/11/18 02/12/18 12:30 18:50 00:01 Troponin I < 0.02 < 0.02 < 0.02 Troponin, BNP 02/11/18 02/11/18 02/12/18 12:30 18:50 00:01 Troponin I < 0.02 < 0.02 < 0.02 SB @ 55 Tele: SR rare PVC Ejection Fraction %: LVEF > or = 40 % Imaging - Results Cat Scan: Report Reviewed (No acute changes) Ultrasound: Report Reviewed (No significant stenosis) MRI: Report Reviewed (No acute stroke) Problem List - Problems (1) Benign positional vertigo Code(s): H81.10 - BENIGN PAROXYSMAL VERTIGO, UNSPECIFIED EAR Qualifiers: Laterality: unspecified laterality Qualified Code(s): H81.10 - Benign paroxysmal vertigo, unspecified ear (2) Hypertensive cardiomyopathy Code(s): I11.9 - HYPERTENSIVE HEART DISEASE WITHOUT HEART FAILURE; I43 - CARDIOMYOPATHY IN DISEASES CLASSIFIED ELSEWHERE Qualifiers: Heart failure presence: without heart failure Qualified Code(s): I11.9 - Hypertensive heart disease without heart failure; I43 - Cardiomyopathy in diseases classified elsewhere; I43 - Cardiomyopathy in diseases classified elsewhere; I43 - Cardiomyopathy in diseases classified elsewhere; I43 - Cardiomyopathy in diseases classified elsewhere (3) Hyperlipidemia Code(s): E78.5 - HYPERLIPIDEMIA, UNSPECIFIED Qualifiers: Hyperlipidemia type: pure hypercholesterolemia Qualified Code(s): E78.00 - Pure hypercholesterolemia, unspecified; E78.0 - Pure hypercholesterolemia (4) Gait disturbance Code(s): R26.9 - UNSPECIFIED ABNORMALITIES OF GAIT AND MOBILITY (5) Paroxysmal atrial fibrillation Code(s): I48.0 - PAROXYSMAL ATRIAL FIBRILLATION Assessment/Plan 1. Suspect benign positional vertigo improving 2. Hypertension 3. Paroxysmal atrial fibrillation on NOAC 4. Recent left knee surgery 5. Hyperlipidemia P:1. Meclizine as needed, balance clinic referral 2. Ruled out for NM 3. Continue Apixaban [Eliquis] 5 mg PO BID, Diltiazem Cd [Cardizem Cd -] 240 mg PO HS, Lisinopril/Hydrochlorothiazide [Lisinopril-Hctz 10-12.5 mg Tab] 1 each PO DAILY, Metoprolol Succinate [Toprol XL -] 50 mg PO DAILY, Atorvastatin Ca [ Lipitor] 10 mg PO HS 4. D/c planning, thank you for consultative opportunity
[2018-02-12 11:34] VITALS: BP 117/49; PULSE 65; TEMP 98.1
--- NOTE | 2018-02-12 14:53 | DS ---
Physical Exam: SUBJECTIVE: Patient seen and examined. Denies cp, sob, dizziness. OBJECTIVE: Vital Signs Period Temp Pulse Resp BP Sys/Can Pulse Ox Last 24 Hr 98.0 F-98.2 F 58-68 17-20 110-136/49-67 94-97 PE Neuro: alert, awake, cn 2-12intact Pulm: CTAB CV: s1 s2 rrr Abd: s nt nd + bs Ext: warm, no le edema, L knee incision stable Laboratory Results - last 24 hr 02/11/18 02/12/18 02/12/18 18:50 00:01 06:38 WBC 5.0 RBC 3.79 Hgb 10.2 L Hct 30.4 L MCV 80.3 MCH 26.9 MCHC 33.4 RDW 14.8 Plt Count 162 MPV 6.5 L Neutrophils % 53.7 Lymphocytes % 36.2 D Monocytes % 7.8 Eosinophils % 1.9 Basophils % 0.4 Sodium Potassium Chloride Carbon Dioxide Anion Gap BUN Creatinine Creat Clearance w eGFR Random Glucose Hemoglobin A1c % Calcium Magnesium Total Bilirubin AST ALT Alkaline Phosphatase Troponin I < 0.02 < 0.02 Total Protein Albumin Triglycerides Cholesterol Total LDL Cholesterol HDL Cholesterol 02/12/18 02/12/18 06:38 06:38 WBC RBC Hgb Hct MCV MCH MCHC RDW Plt Count MPV Neutrophils % Lymphocytes % Monocytes % Eosinophils % Basophils % Sodium 143 Potassium 4.1 Chloride 109 H Carbon Dioxide 31 Anion Gap 3 L BUN 18 Creatinine 0.9 Creat Clearance w eGFR > 60 Random Glucose 117 H Hemoglobin A1c % 6.1 H Calcium 8.2 L Magnesium 2.0 Total Bilirubin 0.3 AST 22 ALT 36 Alkaline Phosphatase 67 Troponin I Total Protein 6.7 Albumin 3.2 L Triglycerides 115 Cholesterol 143 Total LDL Cholesterol 105 H HDL Cholesterol 28 L HOSPITAL COURSE: Date of Admission:02/11/18 Date of Discharge: 02/12/18 Minutes to complete discharge: 37 Discharge Summary Reason For Visit: STROKE LIKE EPISODE Current Active Problems Gait disturbance (Acute) Hospital Course: Initial Hospital Course: Briefly, this 63 year old female with a significant past medical history of recent left knee surgery, vertigo, hypertension and atrial fibrillation (on Eliquis) presented to the ED for dizziness and unsteady gait at home. Patient had a recent left knee surgery and is currently undergoing physical therapy. Prior to presenting to the ED she felt dizzy and reported the room was spinning , felt nauseated and laid on the floor and called EMS. Subsequent Hospital Course/Progress Note/ DC summary: Plan: 1. Syncope/pre syncope - MRI brain, head CT, CD, ECHO unremarkable - Started on lipitor 10mg hs 2. Benign positional vertigo - Improved with meclazine, to be continued prn 3. HTN - Controlled, continue home meds 4. P A fib - Eliquis BID 5. HLD - Lipitor 6. L knee sx - Resume PT - Ortho follow up Dispo: - Home with above meds and follow up Condition: Stable - Instructions Diet, Activity, Other Instructions: Please return to the ED for any new, persistent, or worsening symptoms. Follow up with your PCP in 1 week Resume home medications and new medications as directed Referrals: Zachary Hawkins MD [Primary Care Provider] - Disposition: HOME - Home Medications Comprehensive Discharge Medication List: Ambulatory Orders Apixaban [Eliquis] 5 mg PO BID 12/23/17 Diltiazem Cd [Cardizem Cd -] 240 mg PO HS 12/23/17 Lisinopril/Hydrochlorothiazide [Lisinopril-Hctz 10-12.5 mg Tab] 1 each PO DAILY 12/23/17 Metoprolol Succinate [Toprol XL -] 50 mg PO DAILY 12/23/17 Sertraline HCl [Zoloft] 100 mg PO DAILY 12/23/17 Alprazolam [Alprazolam ER] 1 mg PO TID 02/11/18 Klonopin 1 mg PO BID PRN 02/11/18 Atorvastatin Ca [Lipitor] 10 mg PO HS #30 tablet 02/12/18 Meclizine HCl [Antivert -] 12.5 mg PO Q6HPO PRN #20 tablet 02/12/18 This patient is new to me today: Yes Date on this admission: 02/12/18 Emergency Visit: Yes ED Registration Date: 02/11/18 Care time: The patient presented to the Emergency Department on the above date and was hospitalized for further evaluation of their emergent condition. Critical Care patient: No - Discharge Referral Referred to [facility] Med P.C.: No
== END 2018-02-12 16:14 | disposition home or self-care (01) ==
LOC: JER 11:54 → JERBED 15:44 → J4S 16:39
PROVIDERS: ADMIT Hospitalist; ATTEND Nurse Practitioner Acute Care
PROC: 3E0337Z Introduction of Electrolytic and Water Balance Substance into Peripheral Vein, Percutaneous Approach (ICD-10-PCS; principal; 2018-02-11)
DX: H81.10 Benign paroxysmal vertigo, unspecified ear (principal); R26.89 Other abnormalities of gait and mobility; I11.9 Hypertensive heart disease without heart failure; I43 Cardiomyopathy in diseases classified elsewhere; E78.5 Hyperlipidemia, unspecified; I48.0 Paroxysmal atrial fibrillation
CPT/HCPCS: 36415; 70450-TC; 70551-TC; 80053; 80061; 81003; 81015; 82465; 82550; 83036; 83718; 83721; 83735; 84478; 84484; 85025; 85610; 87086; 93005; 93010; 93306-TC; 93880-TC; 97116-GP; 97161-GP; 99285-25; G0378; J7030; Q0162

== ENCOUNTER 2019-04-05 19:07 | Emergency (ER) | payer OTHER | END 2019-04-05 21:18 | disposition home or self-care (01) | LOC: FER 19:07 ==

== ENCOUNTER 2022-06-11 04:40 | Day surgery (SDC) | payer OTHER ==
[2022-06-11 07:22] VITALS: BMI 35.1
[2022-06-11 08:35] VITALS: TEMP 98.5
[2022-06-11 09:15] VITALS: BP 121/51; PULSE 66; RESP 19
== END 2022-06-11 09:30 | disposition home or self-care (01) ==
LOC: JASU-ENDO 04:40
PROVIDERS: ATTEND Internal Medicine Gastroenterology
PROC: 0DBP8ZX Excision of Rectum, Via Natural or Artificial Opening Endoscopic, Diagnostic (ICD-10-PCS; principal; 2022-06-11 08:00)
DX: Z12.11 Encounter for screening for malignant neoplasm of colon (principal); K62.1 Rectal polyp; K64.8 Other hemorrhoids
CPT/HCPCS: 88305-TC